=== PATIENT | female | born 1995 | race Caucasian/White ===

== ENCOUNTER 2024-05-18 12:42 | Outpatient (CLI) | payer BC, SELFPAY ==
[2024-05-18 20:39] LABS: Hepatitis B Surface Antigen Negative (Negative)
[2024-05-18 20:45] LABS: HAV RESULT Negative (Negative); Hepatitis B Core IgM Result Negative (Negative)
[2024-05-18 20:57] LABS: Hepatitis C Virus Antibody Negative (Negative)
== END 2024-05-18 12:43 | disposition home or self-care (01) ==
LOC: ANHGOSHLAB 12:44
PROVIDERS: PCP Emergency Medicine; Visit Provider Emergency Medicine
DX: R76.8 Other specified abnormal immunological findings in serum (principal)
CPT/HCPCS: 36415; 80074